=== PATIENT | female | born 1970 | race Asian ===

== ENCOUNTER 2023-11-15 20:20 | Emergency (ER) | payer BC ==
[~2023-11-15] VITALS: Ht 162.6 cm; Wt 50.0 kg
[2023-11-15 20:43] VITALS: BP 128/62; RESP 18; O2SAT 99
[2023-11-15 20:44] VITALS: PULSE 86
[2023-11-15 22:31] VITALS: TEMP 98.2
[2023-11-15] MEDS: ACETAMINOPHEN 325MG TABLET PO ONE (22:31)
== END 2023-11-15 22:36 | disposition home or self-care (01) ==
LOC: ER 20:20
DX: S93.504A Unspecified sprain of right lesser toe(s), initial encounter (principal); X58.XXXA Exposure to other specified factors, initial encounter; Y93.89 Activity, other specified; Y92.89 Other specified places as the place of occurrence of the external cause; Y99.8 Other external cause status
CPT/HCPCS: 73620; 99283

== ENCOUNTER → 2023-11-18 | Outpatient (CLI) | payer BC ==
[2023-11-18 17:30] LABS: BASOPHILS % 0.7 % (0.0-2.0); EOSINOPHILS % 2.5 % (0.0-5.0); HEMOGLOBIN. 14.1 g/dL (12.0-16.0); LYMPHOCYTES % 25.4 % (20.0-50.0); MEAN CORPUSCULAR HEMOGLOBIN 30.4 pg (28.0-32.0); MEAN CORPUSCULAR HGB CONC 33.7 g/dL (31.0-37.0); MEAN CORPUSCULAR VOLUME 90.1 fL (81.0-99.0); MEAN PLATELET VOLUME 7.7 fl (7.4-10.4); MONOCYTES % 7.8 % (2.0-8.0); NEUTROPHILS % 63.6 % (40.0-76.0); PLATELET 297 x1000/uL (130-400); RED BLOOD CELL COUNT 4.66 mill/uL (4.2-5.4); RED CELL DISTRIBUTION WIDTH 13.5 % (11.6-14.6); WHITE BLOOD COUNT 5.8 x1000/uL (4.5-11.0)
[2023-11-18 17:34] LABS: CARBON DIOXIDE 27 mEq/L (21-32); CHLORIDE 105 mEq/L (98-107); POTASSIUM 4.1 mEq/L (3.5-5.1); SODIUM 139 mEq/L (136-145)
[2023-11-18 17:39] LABS: CREATININE 0.7 mg/dL (0.6-1.0); GLUCOSE 92 mg/dL (70-105); URIC ACID 3.8 mg/dL (3.1-7.8)
[2023-11-18 17:40] LABS: UREA NITROGEN BLOOD 8 mg/dL (9-23)
[2023-11-18 17:41] LABS: ALANINE AMINOTRANSFERASE 57 IU/L (10-49); ASPARTATE AMINOTRANSFERASE 47 IU/L (<34)
[2023-11-18 17:42] LABS: ALBUMIN 4.8 g/dL (3.2-4.8); BILIRUBIN TOTAL 0.6 mg/dL (0.1-1.0); PROTEIN TOTAL 7.5 g/dL (6.0-8.3)
== END | disposition home or self-care (01) ==
LOC: EDSTATUS 07:53 → LAB 16:52
DX: M25.474 Effusion, right foot (principal); M25.571 Pain in right ankle and joints of right foot; M79.671 Pain in right foot
CPT/HCPCS: 36415; 80053; 84550; 85025

== ENCOUNTER → 2023-11-21 | Outpatient (CLI) | payer BC | END | disposition home or self-care (01) | LOC: MRI 06:58 | PROVIDERS: ATTEND Podiatrist Foot & Ankle Surgery | DX: M79.671 Pain in right foot (principal); R60.0 Localized edema; M25.474 Effusion, right foot; M25.571 Pain in right ankle and joints of right foot; M77.8 Other enthesopathies, not elsewhere classified | CPT/HCPCS: 73718 ==